=== PATIENT | male | born 1980 | race Two or more races ===

== ENCOUNTER 2020-09-12 23:56 | Emergency (ER) | payer SELFPAY ==
[~2020-09-12] VITALS: Ht 167.6 cm; Wt 77.1 kg
[2020-09-13] MEDS ORDERED: IV NORMAL SALINE 1000 ML BAG IV ONE (00:30)
[2020-09-13] MEDS ORDERED: ONDANSETRON 4 MG/2 ML VIAL IV STA (00:30)
[2020-09-13] MEDS ORDERED: NALOXONE HCL 0.4 MG/ML AMPUL IV ONE (00:30)
[2020-09-13] MEDS ORDERED: ONDANSETRON HCL 4 MG TABLET PO ONE (00:30)
[2020-09-13] MEDS ORDERED: ONDANSETRON 4 MG/2 ML VIAL ONE (00:44)
[2020-09-13] MEDS ORDERED: NALOXONE HCL 0.4 MG/ML AMPUL ONE (00:45)
[2020-09-13 00:59] LABS: HEMATOCRIT 49.5 % (36.7-47.1); MEAN CORPUSCULAR VOLUME 94.8 fL (73.0-96.2); PLATELET COUNT (AUTO) 304 K/uL (152-348)
[2020-09-13 01:07] LABS: ETHANOL < 3 MG/DL (0-0)
[2020-09-13 01:15] LABS: CARBON DIOXIDE 31 mmol/L (21-32); CHLORIDE 98 mmol/L (98-107); CREATININE 1.2 mg/dL (0.6-1.3); GLUCOSE 113 mg/dL (74-106); POTASSIUM 3.7 mmol/L (3.5-5.1); UREA NITROGEN, BLOOD 11 mg/dL (7-18)
[2020-09-13 01:29] LABS: ALANINE AMINOTRANSFERASE 76 U/L (16-63); ALKALINE PHOSPHATASE 83 U/L (50-136); ASPARTATE AMINOTRANSFERASE 34 U/L (15-37); BILIRUBIN,DIRECT 0.3 mg/dL (0.0-0.2); BILIRUBIN,TOTAL 0.9 mg/dL (0.2-1.0)
[2020-09-13 01:44] LABS: ACETAMINOPHEN < 2.0 ug/mL (10-30)
[2020-09-13] MEDS ORDERED: PROC-11 PO (02:48)
--- NOTE | 2020-09-13 02:55 | NUR ---
IV removed. Catheter intact and site benign. Pressure and 4x4 gauze applied to site. No bleeding noted. Patient discharged to home in stable condition. Written and verbal after care instructions given. Patient verbalizes understanding of instructions. Stressed follow up or return to ER for worsening s/s. Patient A&O x4, ambulating with steady gait. NAD noted
[2020-09-13 03:01] VITALS: BP 129/82
[2020-09-13 03:09] LABS: *BILIRUBIN,URIN NEGATIVE (NEGATIVE); *BLOOD, URINE NEGATIVE (NEGATIVE); *COLOR,URINE AMBER (YELLOW); *KETONES,URINE 3+ (NEGATIVE); *UROBILINOGEN,URINE 0.2 E.U./dl (NORMAL); LEUKOCYTE ESTERASE ,URINE NEGATIVE (NEGATIVE); NITRITE, URINE NEGATIVE (NEGATIVE); UGLUCOSE NEGATIVE (NEGATIVE)
[2020-09-13 03:17] LABS: *CLARITY,URINE HAZY (CLEAR); BACTERIA,URINE NONE SEEN /HPF (NONE SEEN); RBC,URINE 0-3 /HPF (0-3); SQUAMOUS EPITHELIAL CELL,UR FEW /HPF (NONE SEEN); WBC,URINE 0-3 /HPF (0-3)
[2020-09-13 03:18] LABS: MUCUS,URINE MODERATE /LPF (0-FEW)
[2020-09-13 03:35] LABS: *AMPHETAMINE, URINE NEGATIVE (NEGATIVE); *CANNABINOID, URINE NEGATIVE (NEGATIVE); *COCCAINE, URINE NEGATIVE (NEGATIVE); *OPIATE, URINE NEGATIVE (NEGATIVE); *PHENCYCLIDINE SCREEN,URINE NEGATIVE (NEGATIVE)
== END 2020-09-13 02:55 | disposition home or self-care (01) ==
LOC: ER 09-13
DX: T51.0X1A Toxic effect of ethanol, accidental (unintentional), initial encounter (principal); T40.2X1A Poisoning by other opioids, accidental (unintentional), initial encounter; R11.2 Nausea with vomiting, unspecified; Y92.89 Other specified places as the place of occurrence of the external cause; D72.829 Elevated white blood cell count, unspecified; R00.0 Tachycardia, unspecified
CPT/HCPCS: 36415; 80048; 80076; 80299; 80307; 80320; 81001; 85025; 93005; 96374; 96375; 99285; J2310; J2405; G0480; J7030